=== PATIENT | female | born 1980 | race Two or more races ===

== ENCOUNTER → 2017-04-12 | Outpatient (CLI) | payer OTHER ==
--- NOTE | ~2017-04-12 | US128 ---
[id number] [facility]. [facility] [address] [place], [place] [address] [id number] O MR#: [id number] Acc #: [id number] NAME: YUDITH KRAMER : 1980 SEX: F STUDY DATE/TIME: 04/12/2017 14:06 UNIT: [facility]US ROOM: STUDY DESCRIPTION: Thyroid Attending Physician: Antonella Strickland M.D. Referring Physician: Antonella Strickland M.D. Ordering Physician: Antonella Strickland M.D. Primary Care Physician: Noel Pacheco M.D. MEDICAL IMAGING REPORT This report is preliminary unless electronic signature is present EXAM Thyroid ultrasound, 04/12/2017. HISTORY Follow up thyroid nodule. FINDINGS The right thyroid lobe measured 1.6 cm x 4.3 cm x 1.5 cm, while the left lobe measured 1.8 cm by 4.3 cm x 1.8 cm. The isthmus measured 3 mm in the AP direction. There is a 9 mm x 5 mm x 7 mm solid nodule in the upper pole of the right thyroid lobe. This is not significantly changed compared with the previous thyroid ultrasound dated 05/10/2016. The thyroid is otherwise homogeneous in echotexture. There are no masses extrinsic to the thyroid. Normal blood flow is seen throughout both thyroid lobes. IMPRESSION No significant change in the solid nodule in the right thyroid lobe compared with 05/10/2016 thyroid ultrasound. Dictated by... Eduar Crockett M.D. THIS IS AN ELECTRONICALLY VERIFIED REPORT Eduar Crockett M.D. at 04/13/2017 3:59 PM JACQUELINE/shima TD: 04/13/2017 09:22 JOB #: [id number] MEDICAL IMAGING REPORT Page 1 of 1 COPY
== END | disposition home or self-care (01) ==
LOC: CGUS 13:20
DX: E04.2 Nontoxic multinodular goiter (principal); E04.1 Nontoxic single thyroid nodule
CPT/HCPCS: 76536